=== PATIENT | female | born 1980 | race Caucasian/White ===

== ENCOUNTER 2021-01-08 16:35 | Emergency (ER) | payer SELFPAY ==
[2021-01-08 16:44] VITALS: BP 150/102; PULSE 82; RESP 14; TEMP 37.2; O2SAT 100
--- NOTE | 2021-01-08 16:45 | ED.GENADULT ---
HPI - General Adult General Chief complaint: Back Pain/Injury Stated complaint: back pain Time Seen by Provider: 01/08/21 16:46 Source: patient Mode of arrival: ambulatory Limitations: no limitations History of Present Illness HPI narrative: 4-year-old female patient presents to the [facility] with complaints of left thoracic back pain x4 days. Patient denies any specific injury or trauma to the back that she is aware of but states that she does work at [employer] since she does lift heavy things often. Patient states she has tried ibuprofen, Aleve, and other NSAIDs. Patient states she also tried using a heating pad last night and has done some warm baths which has not helped with the pain. Denies any numbness or tingling down the legs or loss of bowel or bladder control. Related Data Allergies Allergy/AdvReac Type Severity Reaction Status Date / Time No Known Allergies Allergy Verified 01/08/21 16:57 Review of Systems Review of Systems: Narrative: CONSTITUTIONAL: Denies fever, chills, or sweats. EYES: Denies visual changes, redness, or discharge. ENT: Denies rhinorrhea, congestion, sore throat, or otalgia. CARDIOVASCULAR: Denies chest pain, palpitations, or edema. RESPIRATORY: Denies cough or dyspnea. GASTROINTESTINAL: Denies abdominal pain, nausea, vomiting, or diarrhea. GENITOURINARY: Denies dysuria or hematuria. SKIN: Denies rash or itching. MUSCULOSKELETAL: Positive left-sided thoracic back pain, denies joint pain, or myalgia. NEUROLOGIC: Denies headache, numbness, or weakness. PSYCHIATRIC: Denies anxiety or depression. [facility] Past Medical History Medical History (Updated 01/08/21 @ 17:11 by GRAYSON Dugan) No significant past medical history Exam Narrative: Exam Narrative: GENERAL: Well-appearing, well-nourished, and in no acute distress. HEAD: Normocephalic, atraumatic. EYES: PERRLA and EOMI. ENT: Nares clear, no rhinorrhea or epistaxis. Mucous membranes moist. NECK: Supple. No lymphadenopathy CHEST: Clear to auscultation. No respiratory distress. HEART: Regular rate and rhythm. No murmur heard. Normal peripheral pulses. ABDOMEN: Soft, nontender, nondistended, normal active bowel sounds. EXTREMITIES: Normal range of motion. No edema. BACK: Patient is able to ambulated without assistance. Pt is seated on the stretcher in no obvouis distress. No surface trauma noted. muscle tenderness to Palpation noted to the left lateral thoracic back area near the RICE thyroid area. No step-offs or deformity noted to the cervical, thoracic or lumbar spine to firm Palpation at the midline. No CVA tenderness to percussion. No saddle anesthesia. ROM: able to stand erect. Normal flexion, extension, Lateral bending and rotation without limitation or complaint of pain. SKIN: Warm, dry, no rash. NEURO: No focal deficits. Alert and oriented x3. Course Vital Signs Vital signs: Vital Signs Temperature 37.2 C 01/08/21 16:44 Pulse Rate 82 01/08/21 16:44 Respiratory Rate 14 01/08/21 16:44 Blood Pressure 150/102 H 01/08/21 16:44 Pulse Oximetry 100 01/08/21 16:44 Temperature 37.2 C 01/08/21 16:58 Pulse Rate 82 01/08/21 16:58 Respiratory Rate 14 01/08/21 16:58 Blood Pressure 150/102 H 01/08/21 16:58 Pulse Oximetry 100 01/08/21 16:58 Vital signs reviewed The patient has been informed that they may have pre-hypertension or Hypertension based on a BP reading in the department. I recommend that the patient call the primary care provider listed on their discharge instructions or a physician of their choice this week to arrange follow up for further evaluation of possible pre-hypertension or Hypertension Medical Decision Making Differential Diagnosis Differential Diagnosis: Differential diagnosis: Acute musculoskeletal injury or exacerbation, neurological emergency, acute coronary syndrome, kidney stones, epidural abscess or hematoma,Cauda Equina Syndrome, herniation. Any care for patient is to disc
[2021-01-08 16:58] VITALS: BP 150/102; PULSE 82; RESP 14; TEMP 37.2; O2SAT 100
== END 2021-01-08 17:12 | disposition home or self-care (01) ==
PROVIDERS: Emergency Provider Nurse Practitioner Family; PCP Nurse Practitioner Family
DX: S29.012A Strain of muscle and tendon of back wall of thorax, initial encounter (principal); X58.XXXA Exposure to other specified factors, initial encounter
CPT/HCPCS: 99203; G0463